=== PATIENT | female | born 1995 | race Two or more races ===

== ENCOUNTER 2018-06-01 14:54 | Emergency (ER) | payer MEDICAID ==
[~2018-06-01] VITALS: Ht 152.4 cm; Wt 90.7 kg
--- NOTE | 2018-06-01 15:00 | NUR ---
aaox3, came to ER c/o LEFT SIDED CHEST PAIN X 2 DAYS, WORSE WHEN TAKING A DEEP BREATH. RR is even and unlabored with NAD noted. Placed on the monitor. Awaiting md for eval.
[2018-06-01] MEDS ORDERED: KETOROLAC TROMETHAMINE INJ 30 MG/ML VIAL IV ONE (16:00)
[2018-06-01] MEDS ORDERED: KETOROLAC TROMETHAMINE 15 MG/ML VIAL ONE (16:09)
[2018-06-01 16:17] LABS: BASOPHILS # (AUTO) 0.1 /CMM (0.0-0.2); BASOPHILS % (AUTO) 1.2 % (0.0-2.0); EOSINOPHILS % (AUTO) 2.3 % (0.0-6.0); HEMATOCRIT 37 % (33-45); HEMOGLOBIN 12.6 g/dL (11.5-14.8); LYMPHOCYTES # (AUTO) 2.5 /CMM (0.8-4.8); LYMPHOCYTES % (AUTO) 30.4 % (20.0-44.0); MEAN CORPUSCULAR HEMOGLOBIN 30 PG (26.0-33.0); MEAN CORPUSCULAR HGB CONC 34 g/dl (31.0-36.0); MEAN CORPUSCULAR VOLUME 87 fL (82-100); MONOCYTES # (AUTO) 0.6 /CMM (0.1-1.30); MONOCYTES % (AUTO) 7.4 % (2.0-12.0); NEUTROPHILS % (AUTO) 58.7 % (43.0-81.0); PLATELET COUNT (AUTO) 205 /CMM (150-450); RDW COEFFICIENT OF VARIATION 12.4 (11.5-15.0); RED BLOOD CELL COUNT(AUTO) 4.24 MIL/uL (4.0-5.2); WHITE BLOOD COUNT (AUTO) 8.4 K/uL (4.3-11.0)
[2018-06-01 16:29] LABS: CALCIUM, SERUM 8.6 mg/dL (8.5-10.1); CARBON DIOXIDE 27 mmol/L (21-32); CHLORIDE 107 mmol/L (98-107); CREATININE 0.8 mg/dL (0.6-1.3); GLUCOSE 119 mg/dL (74-106); POTASSIUM 3.3 mmol/L (3.5-5.1); SODIUM SERUM 139 mmol/L (136-145); UREA NITROGEN, BLOOD 8 mg/dL (7-18)
[2018-06-01 16:37] LABS: TROPONIN I < 0.017 ng/mL (0.00-0.056)
[2018-06-01 17:25] VITALS: BP 132/81
--- NOTE | 2018-06-01 17:25 | NUR ---
IV removed. Catheter intact and site benign. Pressure and 4x4 applied to site. No bleeding noted.Patient discharged to home in stable condition. Written and verbal after care instructions given. Patient verbalizes understanding of instruction.
== END 2018-06-01 17:26 | disposition home or self-care (01) ==
LOC: ER 14:55
DX: R07.89 Other chest pain (principal)
CPT/HCPCS: 36415; 71045; 80048; 84484; 85025; 85378; 93005; 96374; 99285; A4606; J1885; Z7610

== ENCOUNTER 2019-12-15 22:44 | Emergency (ER) | payer MEDICAID ==
[~2019-12-15] VITALS: Ht 152.4 cm; Wt 97.5 kg
--- NOTE | 2019-12-15 22:55 | NUR ---
PT AAOX4. AMBULATORY WITH STEADY GAIT. C/O PRODUCTIVE COUGH W/ YELLOWPHLEGM FOR PAST WEEK. +NAUSEA, -V. RR EVEN AND UNLABORED, NO ACUTE DISTRESS NOTED. VSS. AWAITING MD FOR EVAL. WILL CONTINUE TO MONITOR.
[2019-12-15] MEDS ORDERED: GUAIFENESIN/CODEINE 10 ML UDC ONE (23:18)
--- NOTE | 2019-12-15 23:20 | NUR ---
XRAY AT BEDSIDE
[2019-12-15] MEDS ORDERED: GUAIFENESIN/CODEINE 10 ML UDC PO PRN (23:30)
--- NOTE | 2019-12-16 00:05 | NUR ---
Patient discharged to home in stable condition. Written and verbal after care instructions given. Patient verbalizes understanding of instruction and RX. vss. No acute distress noted. RR even and unlabored. Pt ambulated with steday gait.
[2019-12-16 00:06] VITALS: BP 132/75
== END 2019-12-16 00:06 | disposition home or self-care (01) ==
LOC: ER 22:47
DX: J20.9 Acute bronchitis, unspecified (principal)
CPT/HCPCS: 71045-TC